=== PATIENT | male | born 1945 | race Caucasian/White ===

== ENCOUNTER → 2016-09-17 | Outpatient (CLI) | payer OTHER, MEDICARE ==
[~2016-09-17] MED LIST: GADOBUTROL 10 ML VIAL IVP ONE
[2016-09-17 11:57] LABS: CREATININE 0.7 mg/dL (0.7-1.3); GLOMERULAR FILTRATION RATE > 60
--- NOTE | 2016-09-20 09:18 | MR ---
MRI of the Pelvis Without and With IV Contrast September 17, 2016 Indication: Follow up enhancing lesion in left iliac wing. Technique: Multiplanar T1, proton density fat-suppressed, coronal STIR, and postcontrast fat-suppress ed T1-weighted imaging. 8 mL of Gadavist were uneventfully intravenously administered. Comparison: MRI of the pelvis, April 29, 2016, and CT of the pelvis, May 12, 2016. Findings: The 14 x 13 mm round bone marrow replacing enhancing lesion in the left ilium near the ante rior superior iliac crest is unchanged in size and signal characteristics since May 2016. The l esion is best demonstrated on image of the axial T1 pre- and postcontrast imaging and and image 8 of the coronal T1 postcontrast imaging. No new bone marrow-replacing lesions have developed. Heterogeneous bone marrow signal is otherwise un changed. No enlarged lymph node, mass, or free fluid has developed within the pelvis. The right iliopsoas beatris toby has completely resolved. 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 Impression: Enhancing lesion in left iliac wing is unchanged in size since April 2016; however, it d oes remain suspicious for metastatic disease. Recommend CT-guided biopsy in the interventional suite by Dr. Lugo or Marika. If the patient is not th ought to be amenable to CT-guided bone biopsy, consider additional imaging such as PET-CT or whole camilla dy bone scan. Case was discussed with Dr. Kurtz and Dr. Lugo on September 20, 2016.
== END ==
LOC: FIMAGING 10:55
PROVIDERS: ATTEND Internal Medicine Hematology & Oncology
DX: Z85.46 Personal history of malignant neoplasm of prostate (principal); R93.6 Abnormal findings on diagnostic imaging of limbs
CPT/HCPCS: 72197; A9585

== ENCOUNTER → 2016-11-21 | Outpatient (CLI) | payer OTHER, MEDICARE | LOC: FIMAGING 10:38 | PROVIDERS: ATTEND Internal Medicine Hematology & Oncology | DX: R97.20 Elevated prostate specific antigen [PSA] (principal); C61 Malignant neoplasm of prostate; M41.85 Other forms of scoliosis, thoracolumbar region; Z96.643 Presence of artificial hip joint, bilateral | CPT/HCPCS: 78306; A9503 ==

== ENCOUNTER → 2016-12-26 | Outpatient (CLI) | payer OTHER, MEDICARE ==
[2016-12-26 08:00] LABS: CREATININE 0.8 mg/dL (0.7-1.3); GLOMERULAR FILTRATION RATE > 60
== END ==
LOC: FIMAGING 07:10
PROVIDERS: ATTEND Physician Assistant
DX: M25.552 Pain in left hip (principal); M25.551 Pain in right hip
CPT/HCPCS: 72197; A9585

== ENCOUNTER → 2017-05-06 | Outpatient (CLI) | payer OTHER, MEDICARE | LOC: FIMAGING 09:44 | PROVIDERS: ATTEND Internal Medicine Hematology & Oncology | DX: R42 Dizziness and giddiness (principal); C61 Malignant neoplasm of prostate | CPT/HCPCS: 70553; A9585 ==

== ENCOUNTER → 2017-10-01 | Outpatient (CLI) | payer OTHER, MEDICARE | LOC: CIMAGING 08:40 | PROVIDERS: ATTEND Psychiatry & Neurology Neurology | DX: M25.551 Pain in right hip (principal); M79.604 Pain in right leg; R53.1 Weakness; Z96.641 Presence of right artificial hip joint; Z96.642 Presence of left artificial hip joint | CPT/HCPCS: 73521-PO; 73551-PO ==

== ENCOUNTER → 2017-10-17 | Outpatient (CLI) | payer OTHER, MEDICARE | LOC: FIMAGING 07:43 | PROVIDERS: ATTEND Psychiatry & Neurology Neurology | DX: M51.36 Other intervertebral disc degeneration, lumbar region (principal); M51.26 Other intervertebral disc displacement, lumbar region; M89.38 Hypertrophy of bone, other site; Z85.46 Personal history of malignant neoplasm of prostate | CPT/HCPCS: 72158; A9585 ==

== ENCOUNTER → 2017-12-26 | Outpatient (CLI) | payer OTHER, MEDICARE | LOC: FIMAGING 08:53 | PROVIDERS: ATTEND Internal Medicine Hematology & Oncology | PROC: CP1Z1ZZ Planar Nuclear Medicine Imaging of Musculoskeletal System, All using Technetium 99m (Tc-99m) (ICD-10-PCS; principal; 2017-12-26) | DX: C79.51 Secondary malignant neoplasm of bone (principal); C34.11 Malignant neoplasm of upper lobe, right bronchus or lung; C61 Malignant neoplasm of prostate | CPT/HCPCS: 78306; A9503 ==

== ENCOUNTER → 2018-01-17 | Outpatient (CLI) | payer OTHER, MEDICARE | LOC: BRMIMAGING 08:10 | PROVIDERS: ATTEND Family Medicine | DX: R10.32 Left lower quadrant pain (principal) | CPT/HCPCS: 76705-PO ==

== ENCOUNTER → 2018-06-18 | Outpatient (CLI) | payer OTHER, MEDICARE | LOC: FIMAGING 08:54 | PROVIDERS: ATTEND Internal Medicine Hematology & Oncology | DX: C61 Malignant neoplasm of prostate (principal); Z85.118 Personal history of other malignant neoplasm of bronchus and lung | CPT/HCPCS: 73030; 78306; A9503 ==

== ENCOUNTER → 2018-06-20 | Outpatient (CLI) | payer OTHER, MEDICARE | LOC: FIMAGING 08:13 | PROVIDERS: ATTEND Internal Medicine Hematology & Oncology | DX: R63.4 Abnormal weight loss (principal); R68.81 Early satiety; C61 Malignant neoplasm of prostate; C34.11 Malignant neoplasm of upper lobe, right bronchus or lung | CPT/HCPCS: 78264; A9541 ==

== ENCOUNTER → 2018-09-13 | Outpatient (CLI) | payer OTHER, MEDICARE | LOC: FIMAGING 09:24 | PROVIDERS: ATTEND Internal Medicine Hematology & Oncology | DX: C61 Malignant neoplasm of prostate (principal); C34.11 Malignant neoplasm of upper lobe, right bronchus or lung | CPT/HCPCS: 78306; A9503 ==

== ENCOUNTER → 2018-12-10 | Outpatient (CLI) | payer OTHER, MEDICARE | LOC: FIMAGING 08:59 | PROVIDERS: ATTEND Internal Medicine Hematology & Oncology | DX: Z13.820 Encounter for screening for osteoporosis (principal); M81.0 Age-related osteoporosis without current pathological fracture; M54.9 Dorsalgia, unspecified; Z85.46 Personal history of malignant neoplasm of prostate; Z85.118 Personal history of other malignant neoplasm of bronchus and lung; Z85.830 Personal history of malignant neoplasm of bone; Z96.643 Presence of artificial hip joint, bilateral ==